=== PATIENT | female | born 1960 | race Caucasian/White ===

== ENCOUNTER 2016-10-25 06:50 | Day surgery (SDC) | payer BC ==
[~2016-10-25 06:50] MED LIST: ACETAMINOPHEN 325 MG TABLET PO PRN; ACETYLCHOLINE CHLORIDE 20 DROP KIT IO PRN; BUPIVACAINE HCL/PF 30 ML VIAL IJ PRN; CYCLOPENTOLATE HCL 20 DROP BTL RIGHTEYE PRN; DEXTROSE 5%-0.5 NORMAL SALINE 1,000 ML IV PRN; EPINEPHrine 1 MG/ML AMPUL IO PRN; HYALURONATE SODIUM 0.4 ML DISP.SYRIN IO PRN; HYALURONATE SODIUM 0.85 ML DISP.SYRIN IO PRN; LIDOCAINE HCL/PF 200 MG/5 ML AMPUL TP PRN; LIDOCAINE HCL/PF 5 ML VIAL IO PRN; NORMAL SALINE 3 ML BOX IV PRN; TETRACAINE HCL 150 DROP BTL OP PRN
--- OUTSIDE RECORDS SUMMARY | 2016-10-25 06:54 | XMS REPORT | Encounter Summary ---
:1960 Author Organization [employer] [place] [address] Care Team Providers Name Role Phone Unavailable Primary Care Provider Unavailable Reason for Visit Reason Comments Error Error Encounter Details Date Type Department Care Team Description 09/14/2016 Erroneous [facility] Rosaline Salas, ERRONEOUS Telephone Group Endocrinology RN ENCOUNTER--DISREGAR Encounter [facility] (Primary Dx) [place] [id number] Social History Tobacco Use Types Packs/Day Years Used Date Never Smoker Smokeless Tobacco: Never Used Alcohol Use Drinks/Week oz/Week Comments No Sex Assigned at Date Recorded Not on file as of this encounter Progress Notes Rosaline Salas, RN - 09/14/2016 2:21 PM CDTOpened error in this encounter Plan of Treatment Not on fileas of this encounter Goals Patient Goal Type Goal Recent Progress Patient-Stated? Author Blood Pressure Blood Pressure < 124/64(08/09/2016 No Jackson Acharya 140/90 8:34 AM CDT) C, DO Result Component HEMOGLOBIN A1C < 7.4(08/09/2016 No Anu Perez 7.0 8:04 AM CDT) Lizz, RN as of this encounter Visit Diagnoses Diagnosis ERRONEOUS ENCOUNTER--DISREGARD - Primary in this encounter
--- OUTSIDE RECORDS SUMMARY | 2016-10-25 06:54 | XMS REPORT | Encounter Summary ---
:1960 Author Organization [facility] [place] [address] Care Team Providers Name Role Phone Unavailable Primary Care Provider Unavailable Reason for Visit Reason Comments Diabetes Mellitus Encounter Details Date Type Department Care Team Description 08/09/2016 Office Visit [facility] Jackson Acharya Type 1 diabetes mellitus with hyperosmolar coma, with long-term current use of insulin (HCC) (Primary Dx); Endocrinology CDO Hypothyroidism, unspecified type; [address] Essential hypertension; [place] [address] [place] [address] Pure hypercholesterolemia; [phone] Obesity, unspecified obesity severity, unspecified obesity type Social History Tobacco Use Types Packs/Day Years Used Date Never Smoker Smokeless Tobacco: Never Used Tobacco Cessation:Counseling Given: Yes Alcohol Use Drinks/Week oz/Week Comments No Sex Assigned at Date Recorded Not on file as of this encounter Last Filed Vital Signs Vital Sign Reading Time Taken Blood Pressure 124/64 08/09/2016 8:34 AM CDT Pulse 62 08/09/2016 8:34 AM CDT Temperature - - Respiratory Rate - - Oxygen Saturation - - Inhaled Oxygen Concentration - - Weight 71.6 kg (157 lb 14.4 oz) 08/09/2016 8:34 AM CDT Height 167.6 cm (5' 6") 08/09/2016 8:34 AM CDT Body Mass Index 25.49 08/09/2016 8:34 AM CDT in this encounter Progress Notes Jackson Acharya DO - 08/09/2016 8:19 AM CDTFormatting of this note may be different from the original. [facility] Department of Endocrinology [facility] [place] [address] Visit For: Anaya Soto Sex: female BD: 1960 on 08/09/2016 HPI Summary This is a 54 yo WF here with T2DM for follow up. She has been started on Omnipod pump since last visit. She was diagnosed at age 48 with type 1 diabetes. Her has several cousins children with diabetes-all on father's side. Father has type 2 diabetes, his parents did not have it. She has degenerative disk disease and wants to get a spinal fusion. She had trouble controlling wt. She gets chronic yeast infections, but has a fear of lows. Her settings on the pump are a Basal of MN 0.8, ICR MN 15, and a sensitivity of 50 with a target of 100-120, IOB 4hrs. Has been on CGM in past. Her brain fog has lifted now that BSs are controlled. She stopped her Levothyroxine because she did not feel it was helping. She works out with yoga in am and pm and then gets 7,000-9,000 steps a day. She does strength training with weights 3x/wk, very light. She has infrequent lows to the 50s. Labs from 11/05/14 show TC 179, TG 121, HDL 8, LDL 68 with a HBA1c of 8.5%, currently 8.8% 1.5 mo ago. Breakfast: does not eat this--> protein bar or shake Lunch: cook at work-->chili, pulled pork, sandwich, BLTs, spaghetti, pasta Dinner: meat and salad, potato/sweet potatoes Snacks: none Back injur in july, pecocet for 3 mo. Daughter moved away, mother . Testing 10x/day. Not sure if carb counting accurate. Does eat a lot of carbs some days, up to 150g. Lows when works out. She tried to eat snacks. She does not turn off pump when working out. Not feeling until under 50 BS. She tells me was having lows. She dropped her target to 120 and is now not having lows. Taking lipitor and fish oil. She restarted thyroid, [place] 30mg daily. She is losing weight on this. Lipid panel from today: LDL 65, TGs 24, HDL 61 Recent labs reviewed today: Component Latest Ref Rng 03/31/2016 01/14/2016 09/12/2015 06/25/2015 Cholesterol Triglycerides HDL LDL Hgb-A1C Estimated Avg Glucose Hemoglobin A1C 7.7 8.0 8.8 Estimated Avg Glucose 170 180 207 Free T4 0.70 - 1.48 ng/dL TSH 0.350 - 4.940 uIU/mL TSH 0.358-3.74 0.416 T4, Free 0.76-1.46 0.88 Progesterone 5.6 Thyroglobulin < or=1 IU/mL<1 Estradiol 131 Testosterone total 241 FSH 42.3 T3, Free 2.7 Thyroid Peroxidase Ab 1 Component Latest Ref Rng 04/24/2015 11/05/2014 05/16/2014 Cholesterol 179 Triglycerides 121 HDL 87 LDL 68 Hgb-A1C 8.5 Estimated Avg Glucose 197 Hemoglobin A1C 8.5 8.8 Estimated Avg Glucose Free T4 0.70 - 1.48 ng/dL 0.93 TSH 0.350 - 4.940 uIU/mL 0.565 TSH 0.358-3.74 T4, Free 0.76-1.46 Progesterone Thyroglobulin < or=1 IU/mL Estradiol Testosterone total FSH T3, Free Thyroid Peroxidase Ab Diabetes Type Type 1 yes Type 2 no Age at Onset: 48 Diabetic complications/comorbidities: Chronic kidney disease - no Coronary artery disease no Obesity - no Diabetic neuropathy - no Stroke - no Sleep Apnea - no Retinopathy - no Peripheral vascular disease - no Diabetic gastroparesis - no Microalbuminuria - no Hypertension - yes History diabetic foot ulcer/amputation - no Diabetic nephropathy - no Hyperlipidemia - yes Hypoglycemic unawareness -no Other Date last ophthalmology exam: 08/2014 Last foot exam: 04/24/15 Podiatry follow-up: yes Date of last MNT: no Last diabetes education: 2013 Smoker: no Hypoglycemia past month: yes Aware when blood sugar is low: yes MedicAlert: yes Glucagon: yes Diet: Meals per day - 3 Snacks per day - 0 Carb counting: yes Problems remembering to take medications: no Problems affording medications: no Exercise: very active Self-Monitoring: Blood sugar tested: 5 times per day Problems Patient Active Problem List Diagnosis Type 1 diabetes mellitus without complication (HCC) Hypothyroidism Essential hypertension Pure hypercholesterolemia Obesity Hyperglycemia Hypoglycemia High risk medication use Past Medical History Past Medical History Diagnosis Date Hypertension Diabetes mellitus type I (HCC) Hyperlipidemia Hypothyroidism Past Surgical History History reviewed. No pertinent past surgical history. Allergies Review of patient's allergies indicates no known allergies. Immunizations There is no immunization history on file for this patient. Family History Family History Problem Relation Age of Onset Diabetes Father Social History Social History Substance Use Topics Smoking status: Never Smoker Smokeless tobacco: Never Used Alcohol Use: No Medications Current Outpatient Prescriptions Medication Sig Dispense Refill atorvastatin (LIPITOR) 10 MG tablet Take 1 tablet by mouth nightly. 90 tablet 1 Blood Glucose Monitoring Suppl (FREESTYLE INSULINX SYSTEM) W/DEVICE KIT use as directed 0 glucose blood (FREESTYLE TEST STRIPS) test strip TEST 10 X DAILY 300 each 11 insulin aspart (NOVOLOG) 100 UNIT/ML injection - vial Use with insulin pump 50 units daily average (Patient taking differently: Use with insulin pump 40 units daily average) 20 mL 5 lisinopril-hydrochlorothiazide (PRINZIDE,ZESTORETIC) 20-12.5 MG per tablet Take 1 tablet by mouth daily. 90 tablet 3 ARMOUR THYROID 30 MG tablet Take 30 mg by mouth daily. 1 No current facility-administered medications for this visit. Review of Symptoms Constitutional Activity change: no Appetite change: no Weight gain: no Weight loss: no HEENT Dental problem: no Visual disturbance: no Respiratory Cough: no Shortness of breath: no Cardiovascular Chest pains: no Gastrointestinal Diarrhea: no Nausea: no Vomiting: no Skin Rash: no Feet Pain: yes Numbness/tingling: no Sore/ulcer: no Neuro-psychiatric Confusion: no Depression: no ROS Comments: Objective Physical Exam Vital Signs Pulse Readings from Last 3 Encounters: 08/09/16 62 05/05/16 80 01/21/16 80 BP Readings from Last 3 Encounters: 08/09/16 124/64 05/05/16 138/90 01/21/16 136/88 Wt Readings from Last 3 Encounters: 08/09/16 71.623 kg (157 lb 14.4 oz) 05/05/16 74.707 kg (164 lb 11.2 oz) 01/21/16 74.98 kg (165 lb 4.8 oz) BMI: Body mass index is 25.5 kg/(m^2). Lab Review Blood sugar averages Fasting PP Lunch PP Supper PP Bedtime 180 150 100 200 Results for orders placed or performed in visit on 04/22/16 Progesterone Collection Time: 03/31/16 12:00 AM Result Value Ref Range Progesterone 5.6 Thyroglobulin Collection Time: 03/31/16 12:00 AM Result Value Ref Range Thyroglobulin<1< or=1 IU/mL Estradiol Collection Time: 03/31/16 12:00 AM Result Value Ref Range Estradiol 131 pg/mL Testosterone Collection Time: 03/31/16 12:00 AM Result Value Ref Range Testosterone total 241 Follicle stimulating hormone Collection Time: 03/31/16 12:00 AM Result Value Ref Range FSH 42.3 T3, free Collection Time: 03/31/16 12:00 AM Result Value Ref Range T3, Free 2.7 Thyroid peroxidase antibody Collection Time: 03/31/16 12:00 AM Result Value Ref Range Thyroid Peroxidase Ab 1 HEMOGLOBIN A1C (%) Date Value 03/31/2016 7.7 01/14/2016 8.0 09/12/2015 8.8 04/24/2015 8.5 No results found for: [id number], [id number] Lab Results Component Value Date CREATININESE 0.55 11/05/2014 CREATININESE 0.45 05/16/2014 Lab Results Component Value Date CHOL 179 11/05/2014 CHOL 211 05/16/2014 HDL 87 11/05/2014 HDL 103 05/16/2014 LDL 68 11/05/2014 LDL 90 05/16/2014 TRIG 121 11/05/2014 TRIG 90 05/16/2014 Lab Results Component Value Date TSH 0.416 06/25/2015 No results found for: LINDA ADKINS Assessment/Plan Goals for treatment: Hemoglobin A1C< 7, BP< 140/90. Treatment goals and risk of half-way complications with suboptimal control discussed with patient. 1. Type 1 diabetes mellitus without complication (HCC) Cont current settings, fewer lows and highs. Alert us of any lows. F/u in 3 mo with BS log. Fiber Optics Supervisor for carb counting. 2. Hypothyroidism, unspecified type Back on [place]. Cont this. 3. Essential hypertension On Lisinopril 20mg daily with HCTZ, BP at goal, continue. 4. Pure hypercholesterolemia On moderate intensity statin, recent lipids with LDL of 64, continue. Recheck in 1 year. 5. Obesity, unspecified obesity severity, unspecified obesity type Working on diet and exercise--low carb handout given and explained. Wt down since last appmt. Congratulated pt. 6. High Risk Medication use--insulin 7. Depression Screen mod/severe depression positive. Will forward to primary care physician. 8. Yeast infections--as needed diflucan 150mg one pill for yeast infections RTC in [address] Starkey Body mass index is 25.5 kg/(m^2). Anaya received nutritional counseling in the following manner: lifestyle education regarding diet Anaya received physical activity counseling in the following manner: recommendation to exercise in this encounter Plan of Treatment Name Priority Associated Diagnoses Order Schedule Hemoglobin A1c Routine Type 1 diabetes mellitus with Expected: 11/09/2016, hyperosmolar coma, with long-term Expires: 08/26/2017 current use of insulin (HCC) as of this encounter Goals Patient Goal Type Goal Recent Progress Patient-Stated? Author Blood Pressure Blood Pressure < 124/64(08/09/2016 No Jackson Acharya 140/90 8:34 AM CDT) C, DO Result Component HEMOGLOBIN A1C < 7.4(08/09/2016 No Anu Perez 7.0 8:04 AM CDT) A, RN as of this encounter Visit Diagnoses Diagnosis Type 1 diabetes mellitus with hyperosmolar coma, with long-term current use of insulin (HCC) - Primary Hypothyroidism, unspecified type Essential hypertension Unspecified essential hypertension Pure hypercholesterolemia Obesity, unspecified obesity severity, unspecified obesity type in this encounter
--- OUTSIDE RECORDS SUMMARY | 2016-10-25 06:54 | XMS REPORT | Clinical Summary ---
:1960 Author Organization [facility] [place] [address] Care Team Providers Name Role Phone Unavailable Primary Care Provider Unavailable Source Comments This disclosure is being made pursuant to the [employer] program and maynot contain all information available regarding this patient.[facility] Allergies No Known Allergies Current Medications Be aware that medications may not be up to date as of this document. Alwaysverify current medications with the patient. Prescription Sig. Disp. Refills Start Date End Date Status Blood Glucose use as directed 0 01/10/2015 Active Monitoring Suppl (FREESTYLE INSULINX SYSTEM) W/DEVICE KIT glucose blood TEST 10 X DAILY 300 each 11 12/09/2015 Active (FREESTYLE TEST STRIPS) test strip atorvastatin (LIPITOR) Take 1 tablet by 90 tablet 1 02/02/2016 Active 10 MG tablet mouth nightly. lisinopril-hydrochloro Take 1 tablet by 90 tablet 3 04/27/2016 Active thiazide mouth daily. (PRINZIDE,ZESTORETIC) 20-12.5 MG per tablet ARMOUR THYROID 30 MG Take 30 mg by 1 07/14/2016 Active tablet mouth daily. NOVOLOG 100 UNIT/ML USE WITH PUMP, 20 mL 5 08/17/2016 Active injection - vial APPR. 50 UNITS DAILY Active Problems Problem Noted Date High risk medication use 05/29/2015 Type 1 diabetes mellitus without complication (HCC) 04/24/2015 Hypothyroidism 04/24/2015 Essential hypertension 04/24/2015 Pure hypercholesterolemia 04/24/2015 Obesity 04/24/2015 Hyperglycemia 04/24/2015 Hypoglycemia 04/24/2015 Encounters Date Type Specialty Care Team Description 09/14/2016 Erroneous Telephone Endocrinology Josue, Rosaline A, ERRONEOUS Encounter RN ENCOUNTER--DISREGARD (Primary Dx) 08/13/2016 Refill Endocrinology Jackson Acharya C, DO 08/09/2016 Office Visit Endocrinology Jackson Acharya Type 1 diabetes mellitus with hyperosmolar coma, with long-term current use of insulin (HCC) ( Primary Dx); C, DO Hypothyroidism, unspecified type; Essential hypertension; Pure hypercholesterolemia; Obesity, unspecified obesity severity, unspecified obesity type from Last 3 Months Family History Medical History Relation Name Comments Diabetes Father Relation Name Status Comments Father Social History Tobacco Use Types Packs/Day Years Used Date Never Smoker Smokeless Tobacco: Never Used Tobacco Cessation:Counseling Given: Yes Alcohol Use Drinks/Week oz/Week Comments No Sex Assigned at Date Recorded Not on file Last Filed Vital Signs Vital Sign Reading Time Taken Blood Pressure 124/64 08/09/2016 8:34 AM CDT Pulse 62 08/09/2016 8:34 AM CDT Temperature - - Respiratory Rate 18 01/21/2016 9:39 AM CDT Oxygen Saturation - - Inhaled Oxygen Concentration - - Weight 71.6 kg (157 lb 14.4 oz) 08/09/2016 8:34 AM CDT Height 167.6 cm (5' 6") 08/09/2016 8:34 AM CDT Body Mass Index 25.49 08/09/2016 8:34 AM CDT Plan of Treatment Health Maintenance Due Date Last Done Comments Eye (Ophthalmology) Exam 09/01/1969 Foot Exam 09/01/1969 Hepatitis C Screening 09/01/1977 Pneumococcal Medium Risk 19-64 yo 09/01/1978 (1 of 1 - PPSV23) Tetanus/Pertussis (1 - Tdap) 09/01/1978 Pap Smear 09/01/1980 Colonoscopy 09/01/2009 Mammogram 09/01/2009 Well Adult Visit 09/01/2009 LAB-LIPIDS 11/06/2015 11/05/2014, 05/16/2014 LAB-HgA1C 11/09/2016 08/09/2016, 03/31/2016, 01/14/2016, Additional history exists INFLUENZA IMMUNIZATION (#1) 2016 LAB-URINE MICROALBUMIN 08/09/2017 08/09/2016 Goals Patient Goal Type Goal Recent Progress Patient-Stated? Author Blood Pressure Blood Pressure < 124/64(08/09/2016 No Jackson Acharya 140/90 8:34 AM CDT) C, DO Result Component HEMOGLOBIN A1C < 7.4(08/09/2016 No Anu Perez 7.0 8:04 AM CDT) A, RN Results Microalbumin Urine Random (08/09/2016 8:04 AM) Component Value Ref Range Microalbumin UR <0.50Comment:Unable to calculate 0.00 - 2.10 mg/dL Microalbumin/Creatinine Ratio due to linear low results. Creatinine Urine 39.3 mg/dL Specimen Performing Laboratory [facility] [address] [place] [address] Narrative Testing performed at [facility], [address] [place] [address].Extrusion Press Operator Jagdish Yarbrough MD @ [facility] Hemoglobin A1c (08/09/2016 8:04 AM) Component Value Ref Range Hemoglobin A1C 7.4 % Comment: Nondiabetic Patient:4.0 - 6.0 % Diabetic Patient: < 7.0 % Clinical correlation is essential Estimated Avg Glucose 166 mg/dL Specimen Performing Laboratory [facility] [address] [place] [address] Narrative Testing performed at [facility], [address] [place] [address].Extrusion Press Operator Jagdish Yarbrough MD from Last 3 Months Insurance Payer Benefit Plan / Subscriber ID Type Phone Address Group [facility] PP [id number] Out of State [phone] [address] [facility] PROVIDERS ONLY [address] [place] [id number] Work: [address] [phone] [place], [facility] [address] Home:
--- OUTSIDE RECORDS SUMMARY | 2016-10-25 06:54 | XMS REPORT | Encounter Summary ---
:1960 Author Organization [employer] [place] [address] Care Team Providers Name Role Phone Unavailable Primary Care Provider Unavailable Encounter Details Date Type Department Care Team Description 07/22/2016 Orders Only [facility] Abdulaziz Gaston, Type 1 diabetes Endocrinology [employer]ER mellitus with [address] [facility] hyperosmolar coma, [place] [address] [place] [address] long-term current use [phone] of insulin (HCC) (Primary Dx) Social History Tobacco Use Types Packs/Day Years Used Date Never Smoker Smokeless Tobacco: Never Used Alcohol Use Drinks/Week oz/Week Comments No Sex Assigned at Date Recorded Not on file as of this encounter Plan of Treatment Not on fileas of this encounter Goals Patient Goal Type Goal Recent Progress Patient-Stated? Author Blood Pressure Blood Pressure < 124/64(08/09/2016 No Jackson Acharya 140/90 8:34 AM CDT) C, DO Result Component HEMOGLOBIN A1C < 7.4(08/09/2016 No Anu Perez 7.0 8:04 AM CDT) A, RN as of this encounter Results Hemoglobin A1c (08/09/2016 8:04 AM) Component Value Ref Range Hemoglobin A1C 7.4 % Comment: Nondiabetic Patient:4.0 - 6.0 % Diabetic Patient: < 7.0 % Clinical correlation is essential Estimated Avg Glucose 166 mg/dL Specimen Performing Laboratory [facility] [address] [place] [address] Narrative Testing performed at [facility], [address] [place] [address].Roll Grinder Jagdish Yarbrough MD in this encounter Visit Diagnoses Diagnosis Type 1 diabetes mellitus with hyperosmolar coma, with long-term current use of insulin (HCC) - Primary in this encounter
--- OUTSIDE RECORDS SUMMARY | 2016-10-25 06:54 | XMS REPORT | Encounter Summary ---
:1960 Author Organization [facility] [place] [address] Care Team Providers Name Role Phone Unavailable Primary Care Provider Unavailable Reason for Visit Reason Comments Medication Refill Encounter Details Date Type Department Care Team Description 08/13/2016 Refill [facility] Jackson Acharya, DO Endocrinology [address] [facility] [address] [place] [address] [place] [id number] Social History Tobacco Use Types Packs/Day Years [...] RN as of this encounter Visit Diagnoses Not on filein this encounter
--- OUTSIDE RECORDS SUMMARY | 2016-10-25 06:55 | XMS REPORT | Encounter Summary ---
:1960 Author Organization [facility] [place] [address] Care Team Providers Name Role Phone Unavailable Primary Care Provider Unavailable Encounter Details Date Type Department Care Team Description 04/02/2016 Abstract [facility] Abdulaziz Gaston, [facility] Endocrinology [address] [facility] [address] [place] [address] [place] [id number] Social History Tobacco Use Types Packs/Day Years [...] as of this encounter Results Hemoglobin A1c (03/31/2016) Component Value Ref Range Hemoglobin A1C 7.7 % Estimated Avg Glucose 170 in this encounter Visit Diagnoses Not on filein this encounter
--- OUTSIDE RECORDS SUMMARY | 2016-10-25 06:55 | XMS REPORT | Encounter Summary ---
:1960 Author Organization [place] [place] [address] Care Team Providers Name Role Phone Unavailable Primary Care Provider Unavailable Reason for Visit Reason Comments Diabetes Mellitus Encounter Details Date Type Department Care Team Description 05/05/2016 Office Visit [facility] Jackson Acharya Type 1 diabetes mellitus without complication, with long-term current use of insulin ( HCC) (Primary Dx); Endocrinology CDO Hypothyroidism, unspecified type; [address] Essential hypertension; [place] [address] [place] [address] Pure hypercholesterolemia; [phone] Obesity, unspecified obesity severity, unspecified obesity type; [phone] High risk medication use; (Fax) Yeast infection Social History Tobacco Use Types Packs/Day Years Used Date Never Smoker Smokeless Tobacco: Never Used Tobacco Cessation:Counseling Given: No Alcohol Use Drinks/Week oz/Week Comments No Sex Assigned at Date Recorded Not on file as of this encounter Last Filed Vital Signs Vital Sign Reading Time Taken Blood Pressure 138/90 05/05/2016 8:55 AM [employer] Pulse 80 05/05/2016 8:55 AM [employer] Temperature - - Respiratory Rate - - Oxygen Saturation - - Inhaled Oxygen Concentration - - Weight 74.7 kg (164 lb 11.2 oz) 05/05/2016 8:55 AM [employer] Height 167.6 cm (5' 6") 05/05/2016 8:55 AM [employer] 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 [facility] Department of Endocrinology [facility] [place] [address] Visit For: Anaya Soto Sex: female BD: 1960 on 05/06/2016 HPI Summary This is a 54 yo [...] out. Not feeling until under 50 BS. Recent labs reviewed today: Component Latest Ref [...] tablet by mouth daily. 90 tablet 3 No current facility-administered medications for this visit. [...] Signs Pulse Readings from Last 3 Encounters: 05/05/16 80 01/21/16 80 10/21/15 88 BP Readings from Last 3 Encounters: 05/05/16 138/90 01/21/16 136/88 10/21/15 124/88 Wt Readings from Last 3 Encounters: 05/05/16 74.707 kg (164 lb 11.2 oz) 01/21/16 74.98 kg (165 lb 4.8 oz) 10/21/15 69.854 kg (154 lb) BMI: Body mass index is 26.6 kg/(m^2). Lab Review Blood sugar averages Fasting [...] 8.8 04/24/2015 8.5 No results found for: [id number], [id number] Lab Results Component Value Date CREATININESE 0.55 11/05/2014 CREATININESE 0.45 05/16/2014 Lab Results Component Value Date CHOL 179 11/05/2014 CHOL 211 05/16/2014 HDL 87 11/05/2014 HDL 103 05/16/2014 LDL 68 11/05/2014 LDL 90 05/16/2014 TRIG 121 11/05/2014 TRIG 90 05/16/2014 Lab Results Component Value Date TSH 0.416 06/25/2015 No results found for: MICREATRATIO, UMICROALBC Assessment/Plan Goals for treatment: Hemoglobin A1C< 7, BP< 140/90. Treatment goals and risk of intermodal dispatcher complications with suboptimal control discussed with patient. 1. Type 1 diabetes mellitus without complication (HCC) Her settings on the pump are a Basal of MN 0.8, ICR MN 15, add 6PM 14 and a sensitivity of 50 with a target of 100-120, IOB 4hrs. Has been on CGM in past.. Alert us of any lows. F/u in 3 mo with BSlog. 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 2. Hypothyroidism, unspecified type Now off Levothyroxine. I do not disagree as was on low dose with questionable results. Recheck TSH and FT4 was normal. 3. Essential hypertension On Lisinopril 20mg daily with HCTZ, BP at goal, continue. 4. Pure hypercholesterolemia On moderate intensity statin, recent lipids with LDL of 68, continue. Recheck next visit. 5. Obesity, unspecified obesity severity, unspecified obesity [...] CC Dr. Starkey Body mass index is 26.6 kg/(m^2). Anaya received nutritional counseling in the following manner: lifestyle education regarding diet Anaya received physical activity counseling in the following manner: recommendation to exercise in this encounter Plan of Treatment Not on fileas of this encounter Goals Patient Goal Type Goal Recent Progress Patient-Stated? Author Blood Pressure Blood Pressure < 124/64(08/09/2016 No Jackson Acharya 140/90 8:34 AM CDT) C, DO Result Component HEMOGLOBIN A1C < 7.4(08/09/2016 No Anu Perez 7.0 8:04 AM CDT) A, RN as of this encounter Visit Diagnoses Diagnosis Type 1 diabetes mellitus without complication, with long-term current use of insulin (HCC) - Primary Hypothyroidism, unspecified type Essential hypertension Unspecified essential hypertension Pure hypercholesterolemia Obesity, unspecified obesity severity, unspecified obesity type High risk medication use Encounter for long-term (current) use of other medications Yeast infection Other and unspecified mycoses in this encounter
--- OUTSIDE RECORDS SUMMARY | 2016-10-25 06:55 | XMS REPORT | Encounter Summary ---
:1960 Author Organization [employer] [place] [address] Care Team Providers Name Role Phone Unavailable Primary Care Provider Unavailable Encounter Details Date Type Department Care Team Description 05/19/2016 Orders Only [facility] Jackson Acharya Type 1 diabetes Endocrinology C, DO mellitus without [address] complication (HCC) [place] [address] [place] [address] Social History Tobacco Use Types Packs/Day Years [...] A, RN as of this encounter Results Laboratory Miscellaneous (03/31/2016)Hemoglobin A1c (03/31/2016) Specimen Performing Laboratory EXTERNAL NON [facility] - NO INTERFACE in this encounter Visit Diagnoses Diagnosis Type 1 diabetes mellitus without complication (HCC) Type I (juvenile type) diabetes mellitus without mention of complication, not stated as uncontrolled in this encounter
--- OUTSIDE RECORDS SUMMARY | 2016-10-25 06:55 | XMS REPORT | Encounter Summary ---
:1960 Author Organization [employer] [place] [address] Care Team Providers Name Role Phone Unavailable Primary Care Provider Unavailable Reason for Visit Reason Comments Medication Refill Encounter Details Date Type Department Care Team Description 04/27/2016 Refill [facility] Jackson Acharya, DO Endocrinology [address] [facility] [address] [place] [address] [place] [phone] Social History Tobacco Use Types Packs/Day Years [...]
--- OUTSIDE RECORDS SUMMARY | 2016-10-25 06:55 | XMS REPORT | Encounter Summary ---
:1960 Author Organization [employer] [place] [address] Care Team Providers Name Role Phone Unavailable Primary Care Provider Unavailable Encounter Details Date Type Department Care Team Description 04/16/2016 Abstract [facility] Abdulaziz Gaston, [facility] Endocrinology [address] [facility] [address] [place] [address] [place] [phone] Social History Tobacco Use Types Packs/Day Years [...]
--- OUTSIDE RECORDS SUMMARY | 2016-10-25 06:55 | XMS REPORT | Encounter Summary ---
:1960 Author Organization [employer] [place] [address] Care Team Providers Name Role Phone Unavailable Primary Care Provider Unavailable Reason for Visit Reason Comments Other Encounter Details Date Type Department Care Team Description 04/09/2016 Telephone [facility] Abdulaziz Gaston, [facility] Other Endocrinology [address] [facility] [address] [place] [address] [place] [phone] Social History Tobacco Use Types Packs/Day Years [...]
--- OUTSIDE RECORDS SUMMARY | 2016-10-25 06:55 | XMS REPORT | Encounter Summary ---
:1960 Author Organization [employer] [place] [address] Care Team Providers Name Role Phone Unavailable Primary Care Provider Unavailable Encounter Details Date Type Department Care Team Description 04/22/2016 Abstract [facility] Karla Reyes RN Endocrinology [address] [place] [address] [place] [phone] Social History Tobacco Use Types Packs/Day Years [...] CDT) Lizz, RN as of this encounter Results Thyroid peroxidase antibody (03/31/2016) Component Value Ref Range Thyroid Peroxidase Ab 1 T3, free (03/31/2016) Component Value Ref Range T3, Free 2.7 Follicle stimulating hormone (03/31/2016) Component Value Ref Range FSH 42.3 Testosterone (03/31/2016) Component Value Ref Range Testosterone total 241 Estradiol (03/31/2016) Component Value Ref Range Estradiol 131 pg/mL Thyroglobulin (03/31/2016) Component Value Ref Range Thyroglobulin <1 < or=1 IU/mL Progesterone (03/31/2016) Component Value Ref Range Progesterone 5.6 in this encounter Visit Diagnoses Not on filein this encounter
--- OUTSIDE RECORDS SUMMARY | 2016-10-25 06:55 | XMS REPORT | Encounter Summary ---
:1960 Author Organization [employer] [place] [address] Care Team Providers Name Role Phone Unavailable Primary Care Provider Unavailable Reason for Visit Reason Comments Medication Refill Encounter Details Date Type Department Care Team Description 06/25/2016 Refill [facility] Jackson Ahcarya, DO Endocrinology [address] [facility] [address] [place] [address] [place] [phone] Social History Tobacco Use Types Packs/Day Years [...]
--- OUTSIDE RECORDS SUMMARY | 2016-10-25 06:56 | XMS REPORT | Encounter Summary ---
:1960 Author Organization [employer] [place] [address] Care Team Providers Name Role Phone Unavailable Primary Care Provider Unavailable Reason for Visit Reason Comments Medication Refill Encounter Details Date Type Department Care Team Description 02/02/2016 Refill [facility] Abdulaziz Gaston, [facility] Endocrinology [address] [facility] [address] [place] [address] [place] [address] [phone] Social History Tobacco Use Types Packs/Day Years [...]
[2016-10-25] MEDS: PHENYLEPHRINE HCL 50 DROP BTL RIGHTEYE PRN ×3 (07:13→07:38)
[2016-10-25] MEDS: TROPICAMIDE 150 DROP BTL RIGHTEYE PRN ×3 (07:13→07:38)
[2016-10-25] MEDS ORDERED: RINGER'S SOLUTION,LACTATED 1,000 ML IV ONE (07:37)
[2016-10-25 09:30] VITALS: BP 109/76
== END 2016-10-25 06:51 | disposition home or self-care (01) ==
LOC: AMB 06:50
PROVIDERS: ATTEND Ophthalmology
PROC: 08RJ3JZ Replacement of Right Lens with Synthetic Substitute, Percutaneous Approach (ICD-10-PCS; principal; 2016-10-25 08:00)
DX: H26.8 Other specified cataract (principal); E11.9 Type 2 diabetes mellitus without complications; I10 Essential (primary) hypertension; E03.9 Hypothyroidism, unspecified; Z68.25 Body mass index [BMI] 25.0-25.9, adult

== ENCOUNTER 2016-11-08 07:12 | Day surgery (SDC) | payer BC ==
[~2016-11-08 07:12] MED LIST changes: +CYCLOPENTOLATE HCL 20 DROP BTL LEFTEYE PRN; -CYCLOPENTOLATE HCL 20 DROP BTL RIGHTEYE PRN
[2016-11-08] MEDS: TROPICAMIDE 150 DROP BTL LEFTEYE PRN ×3 (07:14→07:35)
[2016-11-08] MEDS: PHENYLEPHRINE HCL 50 DROP BTL LEFTEYE PRN ×3 (07:14→07:35)
[2016-11-08] MEDS ORDERED: RINGER'S SOLUTION,LACTATED 1,000 ML IV ONE (07:32)
[2016-11-08 09:27] VITALS: BP 109/69
== END 2016-11-08 07:13 | disposition home or self-care (01) ==
LOC: AMB 07:12
PROVIDERS: ATTEND Ophthalmology
PROC: 08RK3JZ Replacement of Left Lens with Synthetic Substitute, Percutaneous Approach (ICD-10-PCS; principal; 2016-11-08 08:00)
DX: H26.9 Unspecified cataract (principal); I10 Essential (primary) hypertension; E10.9 Type 1 diabetes mellitus without complications; E03.9 Hypothyroidism, unspecified; Z68.25 Body mass index [BMI] 25.0-25.9, adult

== ENCOUNTER 2017-01-03 06:55 | Day surgery (SDC) | payer BC ==
[2017-01-03] MEDS: PHENYLEPHRINE HCL 50 DROP BTL LEFTEYE PRN ×3 (07:15→07:35)
[2017-01-03] MEDS: TROPICAMIDE 150 DROP BTL LEFTEYE PRN ×3 (07:15→07:35)
[2017-01-03] MEDS ORDERED: RINGER'S SOLUTION,LACTATED 1,000 ML IV ONE (07:33)
[2017-01-03] MEDS ORDERED: TETRACAINE HCL 150 DROP BTL LEFTEYE ONE (09:09)
[2017-01-03 09:40] VITALS: BP 102/69
== END 2017-01-03 06:56 | disposition home or self-care (01) ==
LOC: AMB 06:55
PROVIDERS: ATTEND Ophthalmology
PROC: 08RK3JZ Replacement of Left Lens with Synthetic Substitute, Percutaneous Approach (ICD-10-PCS; principal; 2017-01-03 08:00)
DX: H53.8 Other visual disturbances (principal); I10 Essential (primary) hypertension; E11.9 Type 2 diabetes mellitus without complications; E03.9 Hypothyroidism, unspecified; Z68.25 Body mass index [BMI] 25.0-25.9, adult